=== PATIENT | female | born 1935 | race Two or more races ===

== ENCOUNTER 2025-02-24 07:54 | Emergency (ER) | payer OTHER ==
[~2025-02-24] VITALS: Ht 162.6 cm; Wt 62.6 kg
[2025-02-24] MEDS ORDERED: LANOXIN62.5 MCG PO (08:06)
[2025-02-24] MEDS ORDERED: TENORMIN25 MG PO (08:06)
[2025-02-24] MEDS ORDERED: ZOLOFT50 MG PO (08:06)
[2025-02-24] MEDS ORDERED: ELIQUIS2.5 MG PO (08:06)
[2025-02-24] MEDS ORDERED: METHYLPREDNISOLONE (08:07)
[2025-02-24] MEDS ORDERED: LASIX20 MG PO (08:07)
[2025-02-24] MEDS ORDERED: RIVASTIGMINE (08:08)
[2025-02-24] MEDS ORDERED: XANAX1 MG PO (08:08)
[2025-02-24] MEDS ORDERED: RISPERDAL1 MG PO (08:08)
[2025-02-24] MEDS ORDERED: 0.9 % SODIUM CHLORIDE 1,000 ML IV SCH (08:45)
[2025-02-24] MEDS ORDERED: DIPHENHYDRAMINE HCL 50 MG/ML VIAL 1ML IV STA (08:57)
[2025-02-24] MEDS ORDERED: FAMOTIDINE/PF 20 MG/2 ML VIAL IV STA (08:58)
[2025-02-24] MEDS ORDERED: METHYLPREDNISOLONE SOD SUCC 125 MG in DEXTROSE 5 % IN WATER 100 ML IV SCH (09:00)
[2025-02-24] MEDS ORDERED: METHYLPREDNISOLONE SOD SUCC 125 MG VIAL ONE (09:23)
[2025-02-24] MEDS ORDERED: DIPHENHYDRAMINE HCL 50 MG/ML VIAL 1ML ONE (09:23)
[2025-02-24] MEDS ORDERED: FAMOTIDINE/PF 20 MG/2 ML VIAL ONE (09:23)
[2025-02-24 10:03] LABS: BASO % 0.3 % (0.1-1.2); EOS # 0.22 (0.04-0.54); EOS % 2.1 % (0.7-7.0); LYMPH # 0.73 (1.18-3.74); LYMPH % 7.0 % (19.3-53.1); MEAN PLATELET VOLUME 10.00 fl (9.4-12.4); MONO # 0.53 (0.24-0.82); MONO % 5.1 % (4.7-12.5); NEUT # 8.86 (1.56-6.13); NEUT % 85.1 % (34.0-71.1); RED CELL DISTRIBUTION WIDTH 14.0 % (11.6-14.4)
[2025-02-24 10:53] LABS: ALT/SGPT 27 U/L (12-78); AST/SGOT 27 U/L (15-37); BILIRUBIN TOTAL 0.63 mg/dL (0.3-1.2); BUN CREA RATIO 29 (7.0-25.0); CREATININE SERUM 0.78 mg/dL (0.55-1.02); GFR 69.54; GLOBULINA 3.9 G/DL (2.4-3.5); GLUCOSE FASTING 143 mg/dL (65-100); OSMOLALITY SERUM 287 MOSM/KG (275-295)
[2025-02-24] MEDS ORDERED: MEDROLPACK PO (12:44)
[2025-02-24] MEDS ORDERED: NASAL MIST126 ML NASAL (12:44)
[2025-02-24] MEDS ORDERED: BENADRYL25 MG PO (12:44)
[2025-02-24] MEDS ORDERED: PEPCID AC20 MG PO (12:44)
== END 2025-02-24 13:27 | disposition home or self-care (01) ==
LOC: EDBD 07:54 → ER 07:54
PROVIDERS: Physician Assistant Medical
DX: L50.0 Allergic urticaria (principal); T50.905A Adverse effect of unspecified drugs, medicaments and biological substances, initial encounter; R21 Rash and other nonspecific skin eruption; F41.9 Anxiety disorder, unspecified; I10 Essential (primary) hypertension; E11.9 Type 2 diabetes mellitus without complications; Z88.9 Allergy status to unspecified drugs, medicaments and biological substances
CPT/HCPCS: 36415; 96365; 96366; 99282; J1200; J3490 ×2; J7030